=== PATIENT | male | born 2005 | race Caucasian/White ===

== ENCOUNTER 2024-02-04 07:59 | Outpatient (CLI) | payer MEDICAID ==
[~2024-02-04 07:59] MED LIST: FAMO20TA10 PO; ZOF4T PO
== END 2024-02-04 23:59 | disposition home or self-care (01) ==
LOC: RAD 07:59
PROVIDERS: ATTEND Nurse Practitioner Primary Care
DX: R17 Unspecified jaundice (principal)
CPT/HCPCS: 76700